=== PATIENT | female | born 1990 | race American Indian/Alaskan Native ===

== ENCOUNTER 2021-06-14 16:53 | Inpatient (IN) | payer BC, OTHER ==
[2021-06-14] MEDS ORDERED: ACETAMINOPHEN 325 MG TAB PO PRN (17:04)
[2021-06-14] MEDS ORDERED: AMPICILLIN/NS 2 GM/100 ML 2 GM/100 ML BAG IV ONE ×2 (17:04→21:00)
[2021-06-14] MEDS ORDERED: ONDANSETRON 4 MG/2 ML INJ IV PRN (17:04)
[2021-06-14] MEDS ORDERED: fentaNYL 100 MCG/2 ML INJ IV PRN (17:04)
[2021-06-14] MEDS ORDERED: ePHEDrine SULFATE 50 MG/1 ML INJ IV PRN (17:04)
[2021-06-14] MEDS ORDERED: DINOPROSTONE 10 MG VAG SUPP VG ONE (17:04)
[2021-06-14] MEDS ORDERED: OXYTOCIN 10 UNIT/1 ML INJ IM PRN (17:04)
[2021-06-14] MEDS ORDERED: MINERAL OIL 30 ML ORAL LIQD PO PRN (17:04)
[2021-06-14] MEDS ORDERED: TERBUTALINE 1 MG/1 ML INJ SUB-Q PRN (17:04)
[2021-06-14] MEDS ORDERED: NALOXONE 0.4 MG/1 ML INJ IV PRN (17:04)
[2021-06-14] MEDS ORDERED: CARBOPROST TROMETHAMINE 250 MCG/1 ML INJ IM PRN (17:04)
[2021-06-14] MEDS ORDERED: PROMETHAZINE 25 MG TAB PO PRN (17:04)
[2021-06-14] MEDS ORDERED: LIDOCAINE (2%) 20 MG/1 ML VIAL 20 ML MDV INFILTRATI ONE (17:04)
[2021-06-14] MEDS ORDERED: LOPERAMIDE 2 MG CAP PO PRN (17:04)
[2021-06-14] MEDS ORDERED: METHYLERGONOVINE MALEATE 0.2 MG/ML VIAL IM PRN (17:04)
[2021-06-14] MEDS ORDERED: miSOPROStol 200 MCG TAB PR PRN (17:04)
--- NOTE | 2021-06-14 17:11 | History and Physical Report ---
History of Present Illness Date of examination: 06/14/21 Date of admission: 06/14/2021 Chief complaint: They sent me here because my baby's heart rate was going down. History of present illness: Pt presents for post dates IOL. During post dates testing in the office, there was two audible heart rate decelerations noted. Decision made to proceed with IOL. EDC Confirmation: 06/08/2021 Gestational Age: 40.6 weeks on admission Past History : 1 Past Medical History: Reviewed and updated today: History of asthma, no recent attacks. No history of hospitalizations or intubations. Past Surgical History: Reviewed and updated today: negative Family History Summary: Reviewed history and no changes required: 05/11/2021 Risk Factors: Smoked Tobacco Use: Never smoker Smokeless Tobacco Use: Never Passive Smoke Exposure: no HIV High Risk Behavior: low risk Exercise: yes Times/wk: 3 Type of Exercise: walking Seatbelt Use: 100 % No Dietary Counseling Reason: pn yes Alcohol Use: no Drug Use: no Past Medical History Anesthesia Complications: negative Anemia: negative Autoimmune Disorder: negative Bleeding Disorder: negative Blood Transfusions: negative Breast Disease: negative Diabetes: negative Heart Disease: negative Hypertension: negative Hepatitis/Liver Disease: negative Kidney Disease/UTI: negative Neurologic/Epilepsy/Migraines: negative Phlebitis/Varicosities: negative Psychiatric: negative Pulmonary Disease/Asthma: positive Thyroid Disease: negative Hospitalizations: negative Surgery (Non-chairperson anesthesiology): negative Abnormal PAP: positive, h/o abnl pap years ago, but subsequent paps normal Infertility: negative Uterine Anomaly: negative Uterine Surgery (not C/S): negative Infection History Hx of STD: syphilis HIV Risk Eval: low risk Personal hx. of genital herpes: yes Rash, Viral, or Febrile illness since last LMP? no Infection History Comments: Syphillis this treated with Bicillin (no record of positive test); VDRL titers x3 and RPRP px2 all negative Genetic History Congenital Heart Defect: Mom: no Farzana Disease: Mom: no Thalassemia Mom: no Neural Tube Defect Mom: no Down's Syndrome Mom: no Deion-Sachs Mom: no Sickle Cell Disease/Trait Mom: no Hemophilia Mom: no Muscular Dystrophy Mom: no Cystic Fibrosis Mom: no [place] Chorea Mom: no Mental Retardation Mom: no Fragile X Mom: no Other Genetic/Chromosomal Disorder Mom: no Child w/other defect Mom: no Active Medications (reviewed today): valacyclovir unspecified(valacyclovir) Current Allergies (reviewed today): No known allergies Past History Past Medical History: asthma 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 States treated. VDRL and RPR have all been negative. ) Family/Genetic History: none Social history: no significant social history - Obstetrical History Expected Date of Delivery: 06/08/21 Actual Gestation: 41 Week(s) 0 Day(s) : 1 Para: 0 Hx # Term Pregnancies: 0 Number of Pregnancies: 0 Spontaneous Abortions: 0 Induced : 0 Number of Living Children: 0 Medications and Allergies Allergies Allergy/AdvReac Type Severity Reaction Status Date / Time No Known Allergies Allergy Verified 06/14/21 18:09 Home Medications Medication Instructions Recorded Confirmed Last Taken Type Valacyclovir HCl 500 mg PO BID 06/14/21 06/14/21 06/14/21 10:00 History 500 Review of Systems All systems: negative - Physical Exam Breasts: Positive: deferred Cardiovascular: Regular rate Lungs: Positive: Normal air movement Abdomen: Positive: normal appearance, soft Genitourinary (Female): Positive: normal external genitalia, normal perenium Vulva: both: normal (No lesions noted. ) Vagina: Positive: normal moisture Uterus: Positive: enlarged (Appropriate for 4o. wks gestation. ) Anus/Rectum: Positive: normal perianal skin (No lesions noted. ) Extremities: Positive: normal - Obstetrical FHR: category 1 Uterine Contraction Monitor Mode: External Cervical Dilatation: 1 Cervical Effacement Percentage: 60 station: -2 Uterine Contraction Pattern: Irregular Uterine Tone Measurement Phase: Resting Uterine Contraction Intensity: Mild Results Result Diagrams: 06/14/21 18:00 All other labs normal. GBS POSITIVE O POSITIVE VDRL NON REACTIVE HEP B NEGATIVE HEP C NEGATIVE HIV NEGATIVE RUBELLA IMMUNE RPR NON REACTIVE Assessment and Plan A: 31 y.o. @ 40.6 wks, IOL d/t postdates and non-reactive NST in the office. HSV+. Cervical exam /-2. - Patient Problems (1) GBS (group B Streptococcus carrier), +RV culture, currently Current Visit: Yes Status: Acute Plan to address problem: Antibiotics during admission. (2) Herpes simplex infection during Current Visit: Yes Status: Acute Qualifiers: Trimester: unspecified trimester Qualified Code(s): O98.519 - Other viral diseases complicating , unspecified trimester; B00.9 - Herpesviral infection, unspecified Plan to address problem: Valtrex ordered. Will continue to monitor for lesions during labor. (3) Postmaturity , 40-42 weeks gestation Current Visit: Yes Status: Acute Plan to address problem: Admit to labor and delivery. Initiate IV. Draw admission labs. Will insert Cervidil to start IOL. Monitor status through EFM.
[2021-06-14] MEDS ORDERED: AMPICILLIN/NS 1 GM/50 ML 1 GM/50 ML BAG IV SCH (18:00)
[2021-06-14] MEDS ORDERED: OXYTOCIN DRIP 30 UNITS/500 ML BAG IV SCH (18:00)
[2021-06-14 18:26] LABS: Hematocrit 43.6 % (30.3-42.9); Hemoglobin 14.6 gm/dl (10.1-14.3); Mean Corpuscular HGB Conc 34 % (30-34); Mean Corpuscular Volume 98 fl (79-97); Platelet Count 184 K/mm3 (140-440); Red Blood Count 4.44 M/mm3 (3.65-5.03); Red Cell Distribution Width 13.2 % (13.2-15.2)
[2021-06-14] MEDS: LACTATED RINGERS 1,000 ML IV SCH (19:35)
[2021-06-15] MEDS: AMPICILLIN/NS 1 GM/50 ML 1 GM/50 ML BAG IV SCH ×2 (01:25→09:08)
[2021-06-15] MEDS: LACTATED RINGERS 1,000 ML IV SCH (01:28)
[2021-06-15] MEDS: BUTORPHANOL 2 MG/1 ML INJ IV PRN ×2 (04:29→09:06)
--- NOTE | 2021-06-15 05:30 | Progress Note ---
Assessment and Plan - Patient Problems (1) GBS (group B Streptococcus carrier), +RV culture, currently Onset Date: ~06/15/21 Current Visit: Yes Status: Acute Plan to address problem: Will continue Ampicillin protocol in labor (2) Herpes simplex infection during Onset Date: ~06/15/21 Current Visit: Yes Status: Acute Qualifiers: Trimester: unspecified trimester Qualified Code(s): O98.519 - Other viral diseases complicating , unspecified trimester; B00.9 - Herpesviral infection, unspecified Plan to address problem: will continue valtrex 1,000mg QD for prophylaxis (3) 41 weeks gestation of Onset Date: ~06/15/21 Current Visit: Yes Status: Acute Plan to address problem: Cervidil removed per RN SVE 2.5//-2 Pt OOB for AM care and diet. Will start pitocin per protocol @ 0900 Subjective - Subjective Date of service: 06/15/21 (Pt resting Anxious @ POC) Principal diagnosis: IUP 41w0d for IOL Patient reports: movement normal, contractions Objective - Vital Signs Vital Signs: Vital Signs - 12hr 06/14/21 06/14/21 06/14/21 17:40 17:45 17:49 Temperature 98.1 F Pulse Rate 76 96 H 82 Respiratory 15 Rate Blood Pressure Blood Pressure 132/62 [Right] O2 Sat by Pulse 100 100 Oximetry 06/14/21 06/14/21 06/14/21 17:50 17:55 18:00 Temperature Pulse Rate 78 80 79 Respiratory Rate Blood Pressure Blood Pressure [Right] O2 Sat by Pulse 100 100 100 Oximetry 06/14/21 06/14/21 06/14/21 18:05 18:10 18:15 Temperature Pulse Rate 75 88 75 Respiratory Rate Blood Pressure Blood Pressure [Right] O2 Sat by Pulse 100 100 100 Oximetry 06/14/21 06/14/21 06/14/21 18:20 18:25 18:30 Temperature Pulse Rate 67 72 68 Respiratory Rate Blood Pressure Blood Pressure [Right] O2 Sat by Pulse 99 100 99 Oximetry 06/14/21 06/14/21 06/14/21 18:41 18:42 18:47 Temperature Pulse Rate 71 67 Respiratory Rate Blood Pressure Blood Pressure [Right] O2 Sat by Pulse 92 49 L 100 Oximetry 06/14/21 06/14/21 06/14/21 18:52 18:57 19:00 Temperature 98.1 F Pulse Rate 70 70 73 Respiratory 18 Rate Blood Pressure Blood Pressure 124/69 [Right] O2 Sat by Pulse 88 100 100 Oximetry 06/14/21 06/14/21 06/14/21 19:02 19:07 19:12 Temperature Pulse Rate 65 65 74 Respiratory Rate Blood Pressure Blood Pressure [Right] O2 Sat by Pulse 100 100 100 Oximetry 06/14/21 06/14/21 06/14/21 19:17 19:22 19:27 Temperature Pulse Rate 64 72 75 Respiratory Rate Blood Pressure Blood Pressure [Right] O2 Sat by Pulse 100 100 100 Oximetry 06/14/21 06/14/21 06/14/21 19:32 19:37 19:42 Temperature Pulse Rate 77 74 75 Respiratory Rate Blood Pressure 124/69 Blood Pressure [Right] O2 Sat by Pulse 100 100 100 Oximetry 06/14/21 06/14/21 06/14/21 19:47 19:52 19:57 Temperature Pulse Rate 79 75 67 Respiratory Rate Blood Pressure Blood Pressure [Right] O2 Sat by Pulse 99 100 99 Oximetry 06/14/21 06/14/21 06/14/21 20:02 20:07 20:12 Temperature Pulse Rate 88 75 70 Respiratory Rate Blood Pressure Blood Pressure [Right] O2 Sat by Pulse 100 100 100 Oximetry 06/14/21 06/14/21 06/14/21 20:17 20:22 20:27 Temperature Pulse Rate 70 68 73 Respiratory Rate Blood Pressure Blood Pressure [Right] O2 Sat by Pulse 100 100 100 Oximetry 06/14/21 06/14/21 06/14/21 20:32 20:37 20:42 Temperature Pulse Rate 72 77 81 Respiratory Rate Blood Pressure Blood Pressure [Right] O2 Sat by Pulse 100 100 100 Oximetry 06/14/21 06/14/21 06/14/21 20:47 20:52 20:57 Temperature Pulse Rate 75 74 77 Respiratory Rate Blood Pressure Blood Pressure [Right] O2 Sat by Pulse 100 100 100 Oximetry 06/14/21 06/14/21 06/14/21 21:08 21:13 21:18 Temperature Pulse Rate 76 73 82 Respiratory Rate Blood Pressure Blood Pressure [Right] O2 Sat by Pulse 97 100 100 Oximetry 06/14/21 06/14/21 06/14/21 21:23 21:28 21:33 Temperature Pulse Rate 81 82 81 Respiratory Rate Blood Pressure Blood Pressure [Right] O2 Sat by Pulse 99 100 100 Oximetry 06/14/21 06/14/21 06/14/21 21:38 21:43 21:46 Temperature Pulse Rate 77 71 70 Respiratory Rate Blood Pressure 111/71 Blood Pressure [Right] O2 Sat by Pulse 100 100 Oximetry 06/14/21 06/14/21 06/14/21 21:48 21:53 21:58 Temperature Pulse Rate 77 74 70 Respiratory Rate Blood Pressure Blood Pressure [Right] O2 Sat by Pulse 100 100 100 Oximetry 06/14/21 06/14/21 06/14/21 22:03 22:08 22:13 Temperature Pulse Rate 70 68 71 Respiratory Rate Blood Pressure Blood Pressure [Right] O2 Sat by Pulse 100 100 98 Oximetry 06/14/21 06/14/21 06/14/21 22:16 22:18 22:23 Temperature Pulse Rate 71 79 66 Respiratory Rate Blood Pressure 107/74 Blood Pressure [Right] O2 Sat by Pulse 98 99 Oximetry 06/14/21 06/14/21 06/14/21 22:28 22:33 22:42 Temperature Pulse Rate 66 65 81 Respiratory Rate Blood Pressure Blood Pressure [Right] O2 Sat by Pulse 99 99 99 Oximetry 06/14/21 06/14/21 06/14/21 22:45 22:47 22:52 Temperature Pulse Rate 80 72 82 Respiratory Rate Blood Pressure 127/82 Blood Pressure [Right] O2 Sat by Pulse 99 98 Oximetry 06/14/21 06/14/21 06/14/21 22:57 23:02 23:07 Temperature Pulse Rate 75 70 66 Respiratory Rate Blood Pressure Blood Pressure [Right] O2 Sat by Pulse 99 99 99 Oximetry 06/14/21 06/14/21 06/14/21 23:12 23:16 23:17 Temperature Pulse Rate 78 67 72 Respiratory Rate Blood Pressure 114/58 Blood Pressure [Right] O2 Sat by Pulse 99 97 Oximetry 06/14/21 06/14/21 06/14/21 23:22 23:27 23:32 Temperature Pulse Rate 71 74 69 Respiratory Rate Blood Pressure Blood Pressure [Right] O2 Sat by Pulse 97 96 98 Oximetry 06/14/21 06/14/21 06/14/21 23:37 23:42 23:47 Temperature Pulse Rate 72 73 80 Respiratory Rate Blood Pressure Blood Pressure [Right] O2 Sat by Pulse 98 99 99 Oximetry 06/14/21 06/14/21 06/15/21 23:52 23:57 00:02 Temperature Pulse Rate 77 77 71 Respiratory Rate Blood Pressure Blood Pressure [Right] O2 Sat by Pulse 99 99 98 Oximetry 06/15/21 06/15/21 06/15/21 00:07 00:12 00:15 Temperature Pulse Rate 83 71 74 Respiratory Rate Blood Pressure 106/54 Blood Pressure [Right] O2 Sat by Pulse 99 98 Oximetry 06/15/21 06/15/21 06/15/21 00:17 00:22 00:32 Temperature Pulse Rate 78 86 82 Respiratory Rate Blood Pressure Blood Pressure [Right] O2 Sat by Pulse 98 98 99 Oximetry 06/15/21 06/15/21 06/15/21 00:37 00:42 00:46 Temperature Pulse Rate 81 79 69 Respiratory Rate Blood Pressure 118/80 Blood Pressure [Right] O2 Sat by Pulse 99 100 Oximetry 06/15/21 06/15/21 06/15/21 00:47 00:52 00:57 Temperature Pulse Rate 91 H 94 H 67 Respiratory Rate Blood Pressure Blood Pressure [Right] O2 Sat by Pulse 98 99 100 Oximetry 06/15/21 06/15/21 06/15/21 01:02 01:07 01:12 Temperature Pulse Rate 81 81 81 Respiratory Rate Blood Pressure Blood Pressure [Right] O2 Sat by Pulse 98 98 99 Oximetry 06/15/21 06/15/21 06/15/21 01:15 01:17 01:22 Temperature Pulse Rate 78 82 74 Respiratory Rate Blood Pressure 108/69 Blood Pressure [Right] O2 Sat by Pulse 99 98 Oximetry 06/15/21 06/15/21 06/15/21 01:27 01:32 01:37 Temperature Pulse Rate 69 73 78 Respiratory Rate Blood Pressure Blood Pressure [Right] O2 Sat by Pulse 98 98 98 Oximetry 06/15/21 06/15/21 06/15/21 01:42 01:46 01:47 Temperature Pulse Rate 73 65 70 Respiratory Rate Blood Pressure 108/58 Blood Pressure [Right] O2 Sat by Pulse 97 97 Oximetry 06/15/21 06/15/21 06/15/21 01:52 01:57 02:02 Temperature Pulse Rate 66 62 62 Respiratory Rate Blood Pressure Blood Pressure [Right] O2 Sat by Pulse 98 98 98 Oximetry 06/15/21 06/15/21 06/15/21 02:07 02:12 02:16 Temperature Pulse Rate 60 63 61 Respiratory Rate Blood Pressure 112/66 Blood Pressure [Right] O2 Sat by Pulse 97 98 Oximetry 06/15/21 06/15/21 06/15/21 02:17 02:20 02:22 Temperature Pulse Rate 75 72 Respiratory 16 Rate Blood Pressure Blood Pressure [Right] O2 Sat by Pulse 98 100 Oximetry 06/15/21 06/15/21 06/15/21 02:27 02:32 02:37 Temperature Pulse Rate 68 61 65 Respiratory Rate Blood Pressure Blood Pressure [Right] O2 Sat by Pulse 99 98 98 Oximetry 06/15/21 06/15/21 06/15/21 02:42 02:46 02:47 Temperature Pulse Rate 60 64 62 Respiratory Rate Blood Pressure 111/68 Blood Pressure [Right] O2 Sat by Pulse 99 99 Oximetry 06/15/21 06/15/21 06/15/21 02:52 02:57 03:02 Temperature Pulse Rate 65 70 77 Respiratory Rate Blood Pressure Blood Pressure [Right] O2 Sat by Pulse 99 99 99 Oximetry 06/15/21 06/15/21 06/15/21 03:05 03:07 03:12 Temperature Pulse Rate 88 87 70 Respiratory Rate Blood Pressure Blood Pressure [Right] O2 Sat by Pulse 94 99 98 Oximetry 06/15/21 06/15/21 06/15/21 03:16 03:17 03:22 Temperature Pulse Rate 68 65 64 Respiratory Rate Blood Pressure 118/82 Blood Pressure [Right] O2 Sat by Pulse 100 100 Oximetry 06/15/21 06/15/21 06/15/21 03:27 03:32 03:37 Temperature Pulse Rate 61 64 65 Respiratory Rate Blood Pressure Blood Pressure [Right] O2 Sat by Pulse 98 99 100 Oximetry 06/15/21 06/15/21 06/15/21 03:42 03:46 03:47 Temperature Pulse Rate 68 63 65 Respiratory Rate Blood Pressure 122/78 Blood Pressure [Right] O2 Sat by Pulse 100 98 Oximetry 06/15/21 06/15/21 06/15/21 03:52 03:57 04:02 Temperature Pulse Rate 61 65 67 Respiratory Rate Blood Pressure Blood Pressure [Right] O2 Sat by Pulse 98 99 97 Oximetry 06/15/21 06/15/2106/15/21 04:07 04:12 04:15 Temperature Pulse Rate 64 65 66 Respiratory Rate Blood Pressure 121/85 Blood Pressure [Right] O2 Sat by Pulse 100 99 Oximetry 06/15/21 06/15/21 06/15/21 04:17 04:22 04:27 Temperature Pulse Rate 78 70 71 Respiratory Rate Blood Pressure Blood Pressure [Right] O2 Sat by Pulse 96 98 99 Oximetry 06/15/21 06/15/21 06/15/21 04:32 04:37 04:42 Temperature Pulse Rate 81 66 70 Respiratory Rate Blood Pressure Blood Pressure [Right] O2 Sat by Pulse 98 96 99 Oximetry 06/15/21 06/15/21 06/15/21 04:45 04:47 04:52 Temperature Pulse Rate 60 59 L 62 Respiratory Rate Blood Pressure 123/58 Blood Pressure [Right] O2 Sat by Pulse 96 99 Oximetry 06/15/21 06/15/21 06/15/21 04:57 05:02 05:07 Temperature Pulse Rate 63 63 57 L Respiratory Rate Blood Pressure Blood Pressure [Right] O2 Sat by Pulse 97 97 98 Oximetry 06/15/21 06/15/21 06/15/21 05:12 05:15 05:17 Temperature Pulse Rate 63 63 58 L Respiratory Rate Blood Pressure 110/59 Blood Pressure [Right] O2 Sat by Pulse 97 98 Oximetry 06/15/21 06/15/21 05:22 05:27 Temperature Pulse Rate 66 75 Respiratory Rate Blood Pressure Blood Pressure [Right] O2 Sat by Pulse 100 99 Oximetry - Exam Breasts: deferred Cardiovascular: Regular rate Abdomen: Present: normal appearance, soft. Absent: distention, tenderness Vulva: both: normal Uterus: Present: normal FHR: auscultation normal, category 1 Uterine Contraction Monitor Mode: External Cervical Dilatation: 2.5 (per RN when Cervidil was removed) Cervical Effacement Percentage: 70 station: -2 Uterine Contraction Pattern: Irregular Uterine Tone Measurement Phase: Resting Uterine Contraction Intensity: Moderate Extremities: normal Deep Tendon Reflex Grade: Normal +2 - Labs Labs: Abnormal Labs 06/14/21 18:00 Hgb 14.6 H Hct 43.6 H MCV 98 H MCH 33 H Laboratory Results - last 24 hr 06/14/21 06/14/21 06/14/21 17:45 18:00 18:00 WBC 8.3 RBC 4.44 Hgb 14.6 H Hct 43.6 H MCV 98 H MCH 33 H MCHC 34 RDW 13.2 Plt Count 184 Syphilis IgG Antibody Nonreactive Blood Type O POSITIVE Antibody Screen Negative
[2021-06-15] MEDS ORDERED: diphenhydrAMINE 50 MG/ML VIAL IV PRN (06:15)
[2021-06-15] MEDS ORDERED: OXYTOCIN DRIP 30 UNITS/500 ML BAG IV SCH (09:00)
[2021-06-15] MEDS: valACYclovir 500 MG TAB PO SCH (09:07)
--- NOTE | 2021-06-15 12:08 | Anesthesia Consultation ---
Anesthesia Consult and Med Hx Date of service: 06/15/21 - Airway Anesthetic Teeth Evaluation: Poor ROM Head & Neck: Adequate Mental/Hyoid Distance: Adequate Mallampati Class: Class II Intubation Access Assessment: Probably Good - Pulmonary Exam CTA: Yes - Cardiac Exam Cardiac Exam: RRR - Pre-Operative Health Status ASA Pre-Surgery Classification: ASA2 Proposed Anesthetic Plan: Epidural - Pulmonary Hx Smoking: No Hx Asthma: Yes Hx Respiratory Symptoms: No SOB: No COPD: No Home Oxygen Therapy: No Hx Pneumonia: No Hx Sleep Apnea: No - Cardiovascular System Hx Hypertension: No Hx Coronary Artery Disease: No Hx Heart Attack/AMI: No Hx Angina: No Hx Percutaneous Transluminal Coronary Angioplasty (PTCA): No Hx Cardia Arrhythmia: No Hx Pacemaker: No Hx Internal Defibrillator: No Hx Valvular Heart Disease: No Hx Heart Murmur: No Hx Peripheral Vascular Disease: No - Central Nervous System Hx Neuromuscular Disorder: No Hx Seizures: No CVA: No Hx Back Pain: Yes Hx Psychiatric Problems: No - Gastrointestinal Hx Ulcer: No Hx Gastroesophageal Reflux Disease: Yes - Endocrine Hx Renal Disease: No Hx End Stage Renal Disease: No Hx Cirrhosis: No Hx Liver Disease: No Hx Insulin Dependent Diabetes: No Hx Non-Insulin Dependent Diabetes: No Hx Thyroid Disease: No Hx Hypothyroidism: No Hx Hyperthyroidism: No - Hematic Hx Anemia: No Hx Sickle Cell Disease: No - Other Systems Hx Alcohol Use: No Hx Substance Use: No Hx Cancer: No Hx Obesity: No
[2021-06-15] MEDS ORDERED: NALOXONE 2 MG/2 ML INJ IV PRN (12:30)
[2021-06-15] MEDS ORDERED: ePHEDrine SULFATE 50 MG/1 ML INJ IV PRN (12:30)
--- NOTE | 2021-06-15 12:59 | Progress Note ---
Labor Epidural - Labor Epidural Start Time: 11:25 Stop Time: 11:35 Performed by:: ADRYAN BRAXTON Procedure: Patient is requesting a laboring epidural for laboring pain. Patient IDed, H&P reviewed, all questions and concerns were answered, and consent was signed. Timeout was performed at bedside. Patient in sitting position. Sterile prep and drape was performed. [3] ml of 1% lidocaine skin wheal at L[3]- L [4]. 18- gauge tolingotead epidural needle was advanced to loss of resistance with saline technique 6cm. Negative CSF negative blood. Epidural catheter advanced to [10] centimeters. [NEGATIVE] Aspiration [NEGATIVE] test dose. Sterile dressing applied. Patient tolerated procedure.
[2021-06-15] MEDS ORDERED: fentaNYL-BUPIV 2 MCG/ML-0.125% 200 MCG/100 ML BAG EPIDURAL SCH (13:00)
--- NOTE | 2021-06-15 13:07 | Procedure Note ---
OB Delivery Note - Delivery Date of Delivery: 06/15/21 Inverform Machine Operator: FROYLAN MARC (cord blood banking collected) Estimated blood loss: 300cc - Vaginal Delivery presentation: vertex Delivery position: OA Intrapartum events: meconium, mult.variable deceleratio Delivery induction: cervidil Delivery augmentation: pitocin Delivery monitor: external FHT, external uterine Route of delivery: Delivery placenta: spontaneous Delivery cord: 3 umbilical vessels Episiotomy: midline Delivery laceration: 2nd degree Delivery repair: vicryl Anesthesia: epidural Delivery comments: On my arrival to R amniotic bag extruding from vagina; meconium stained fluid. LATISHA present. over 2nd degree episiotomy Baby skin to skin on mom's abdomen Cord clamped and cut handed to LATISHA team. Pt req cord blood banking Blood obtained into kit pt provided. Placenta and membrane del complete and intact, 3 vessel cord. Pit IVFs. Repair of episiotomy with 2-0 vicryl in usual fashion Care of repair reviewed with pt. 8/9, EBL 300, Wgt 7-2 Mom and baby remain LDR stable. - Infant A at 1 minute: 8 at 5 minutes: 9 Gender: Male (Wgt 7-2 "Tristan")
[2021-06-15] MEDS ORDERED: LANOLIN/ZINC/DIMETHICONE (LANSINOH) 7 GM TP PRN (13:18)
[2021-06-15] MEDS ORDERED: oxyCODONE /ACETAMINOPHEN 5-325MG TAB PO PRN (13:18)
[2021-06-15] MEDS ORDERED: MAGNESIUM HYDROXIDE (MOM) ORAL LIQD UDC PO PRN (13:18)
[2021-06-15] MEDS ORDERED: WITCH HAZEL/ GLYCERIN PAD TP PRN (13:18)
[2021-06-15] MEDS ORDERED: diphenhydrAMINE 25 MG CAP PO PRN (13:18)
[2021-06-15] MEDS: IBUPROFEN 600 MG TAB PO SCH ×2 (14:25→19:46)
[2021-06-16] MEDS: IBUPROFEN 600 MG TAB PO SCH ×2 (02:00→09:50)
[2021-06-16 05:40] LABS: Hematocrit 36.8 % (30.3-42.9); Hemoglobin 12.7 gm/dl (10.1-14.3)
--- NOTE | 2021-06-16 08:06 | Discharge Summary ---
Providers - Providers Date of Admission: 06/14/21 17:11 Date of discharge: 06/16/21 (Pt desires to go home. ) Attending physician: MANJINDER ADLER Primary care physician: MANJINDER ADLER Hospitalization Reason for admission: induction of labor Delivery: Episiotomy: none Laceration: 2nd degree Other procedures: none complications: none Discharge diagnosis: IUP at term delivered [place] baby: male Hospital course: S: Pt doing well. Desires discharge home today. Ambulating, voiding, and passing flatus okay. BC: Pills. O: VSS. H?H 12.7/36.8. Fundus firm, minimal bleeding noted. A: 31 y.o. s/p . and in good condition to be discharged home. P: Discharge home with instructions. To schedule son's circumcision appointment in the office in 1 week. To schedule visit in 4 weeks. Condition at discharge: Good Disposition: 01 HOME / SELF CARE / HOMELESS Plan - Provider Discharge Summary Activity: routine, no sex for 6 weeks, no heavy lifting 4 weeks, no strenuous exercise Diet: routine Instructions: routine Additional instructions: [] Smoking cessation referral if applicable(refer to patient education folder for contact #) [] Refer to [facility] Booklet Call your doctor immediately for: * Fever > 100.5 * Heavy vaginal bleeding ( >1 pad per hour) * Severe persistent headache * Shortness of breath * Reddened, hot, painful area to leg or breast * Drainage or odor from incision. * Keep incision clean and dry at all times and follow doctor's instructions regarding bathing/showering Congratulations on your baby boy! Thank you for allowing us to take care of you. Please schedule your son's circumcision appointment in the office in 1 week. You have been prescribed EMLA cream for your son's circumcision appointment. Please do not use this cream at home but bring it with you to your son's circumcision appointment. Please schedule your visit in the office in 4 weeks. Should you have any questions or concerns after discharge, please do not hesitate to call the office at [phone]. - Follow up plan Follow up: MANJINDER ADLER MD [Primary Care Provider] - 7 Days
[2021-06-16] MEDS: valACYclovir 500 MG TAB PO SCH (09:50)
--- NOTE | 2021-06-16 10:54 | Post Anesthesia Evaluation ---
- Post Anesthesia Evaluation Patient Participated: Yes Airway Patent: Yes Stable Respiratory Function: Yes Nausea/Vomiting: No Temp > 96.8F: Yes Pain Manageable: Yes Adequeate Hydration: Yes Anesthesia Complications: No Block Receding Appropriately: Yes Patient on Ventilator: No
--- NOTE | 2021-06-16 17:08 | Event Note ---
Date: 06/16/21 (Asked by RN to come and speak to patient) I was asked to come and speak with the patient because she and her boyfriend were having a dispute in the room, and that case management may be needed. Upon entering the room, they were both calm and being attentive to the baby. I asked what was going on and if there was anything that I could do to help. They had some questions about taking the baby outside. We discussed the first weeks of the infants life at home, precautions to use when at home with baby and family members visiting. We also discussed breast feeding at home, and pumping. They admitted that they did have an argument earlier in the day, but now they are fine. They both appear to have no distress and were sitting next to each other during my visit. We discussed again bringing baby to the office in 1 week for circumcision. They both verbalized understanding. Will not put case management in at this time as I feel that it will be safe to send baby home with mother and father of baby. They both have a good support system at home and have family members that will be assisting with the baby. The father of the baby did not have a threatening stance towards me during this visit, was friendly, attentive to the mother and baby, and had appropriate questions regarding infant care.
[2021-06-16 17:14] VITALS: BP 127/66
--- NOTE | 2021-06-16 18:20 | Event Note ---
Date: 06/16/21 Went to speak with the patient without the FOC in the room. She states that she feels safe going home and will feel safe at home. The FOC does not live in [place] and will be returning to [place]. She has good support from her sisters at home and lives with her sisters.
== END 2021-06-16 18:47 | disposition home or self-care (01) | DRG 806 ==
LOC: TRG 16:53 → APU 16:54 → TRG 17:09 → LD 17:11 → OB 06-15 14:38
PROVIDERS: ADMIT Obstetrics & Gynecology; ATTEND Obstetrics & Gynecology
PROC: 10E0XZZ Delivery of Products of Conception, External Approach (ICD-10-PCS; principal; 2021-06-15)
PROC: 0KQM0ZZ Repair Perineum Muscle, Open Approach (ICD-10-PCS; 2021-06-15)
PROC: 3E0R3BZ Introduction of Anesthetic Agent into Spinal Canal, Percutaneous Approach (ICD-10-PCS; 2021-06-15)
PROC: 00HU33Z Insertion of Infusion Device into Spinal Canal, Percutaneous Approach (ICD-10-PCS; 2021-06-15)
PROC: 3E0P7VZ Introduction of Hormone into Female Reproductive, Via Natural or Artificial Opening (ICD-10-PCS; 2021-06-15)
PROC: 0W8NXZZ Division of Female Perineum, External Approach (ICD-10-PCS; 2021-06-15)
DX: O48.0 Post-term pregnancy (principal); O98.52 Other viral diseases complicating childbirth; Z37.0 Single live birth; O99.820 Streptococcus B carrier state complicating pregnancy; O76 Abnormality in fetal heart rate and rhythm complicating labor and delivery; Z3A.41 41 weeks gestation of pregnancy; B00.9 Herpesviral infection, unspecified; O70.1 Second degree perineal laceration during delivery; O99.52 Diseases of the respiratory system complicating childbirth; O99.62 Diseases of the digestive system complicating childbirth; K21.9 Gastro-esophageal reflux disease without esophagitis; J45.909 Unspecified asthma, uncomplicated; O77.0 Labor and delivery complicated by meconium in amniotic fluid; Z20.822 Contact with and (suspected) exposure to COVID-19
CPT/HCPCS: 36415; 59200; 85014; 85018; 85027; 86592; 86850; 86900; 86901; 99211; G0378; G0463; J0290; J0595; J2590; J3010; J7120; U0003

== ENCOUNTER 2021-06-25 18:22 | Inpatient (IN) | payer BC, OTHER ==
[2021-06-25] MEDS ORDERED: metroNIDAZOLE/NS 500 MG/100 ML 500 MG/100 ML BAG IV ONE (18:54)
[2021-06-25] MEDS ORDERED: CEFEPIME/NS 2 GM/100 ML 2 GM/100 ML BAG IV ONE (18:54)
--- NOTE | 2021-06-25 18:54 | Emergency Department Report ---
ED Female HPI - General Chief complaint: Vaginal Bleeding Stated complaint: POST OP COMPLICATIONS Time Seen by Provider: 06/25/21 18:44 Source: patient Mode of arrival: Ambulatory Limitations: No Limitations - History of Present Illness Initial comments: Patient presents with lower abdominal pain. 1 week ago, she had a vaginal delivery. She states that she did undergo an episiotomy as her child was large. She had her usual symptomatology after delivery up until yesterday. Yesterday, she started having sharp stabbing abdominal pain. This was unusual for her. She called the office and was told to take 800 mg of ibuprofen. She did this. She is also started running fevers and chills today. Patient states he just does not feel well. She decided to come here for evaluation. She does report that she has had increased discharge with a foul odor. She states it "smells rotten." She has had no dysuria. There is no cough or congestion. There is no sore throat. She has no chest pain. - Related Data Home Medications Medication Instructions Recorded Confirmed Last Taken Valacyclovir HCl 500 mg PO BID 06/14/21 06/14/21 06/14/21 10:00 500 Previous Rx's Medication Instructions Recorded Last Taken Type Ibuprofen [Motrin] 800 mg PO Q8HR PRN #30 tablet 06/16/21 Unknown Rx Lidocain2.5%/Prilocai2.5% [Emla] 1 applic TP ONCE #1 tube 06/16/21 Unknown Rx Allergies Allergy/AdvReac Type Severity Reaction Status Date / Time No Known Allergies Allergy Verified 06/14/21 18:09 ED Review of Systems ROS: Stated complaint: POST OP COMPLICATIONS Other details as noted in HPI Comment: All other systems reviewed and negative Constitutional: see HPI Eyes: denies: eye pain, vision change ENT: denies: throat pain Respiratory: denies: cough Cardiovascular: denies: chest pain Endocrine: denies: unexplained weight loss Gastrointestinal: as per HPI Genitourinary: denies: dysuria Musculoskeletal: denies: back pain Skin: denies: rash Neurological: headache (She developed a migraine today.) Hematological/Lymphatic: denies: easy bruising ED Past Medical Hx - Past Medical History Previous Medical History?: Yes Hx Hypertension: No Hx Heart Attack/AMI: No Hx Congestive Heart Failure: No Hx Diabetes: No Hx Deep Vein Thrombosis: No Hx Liver Disease: No Hx Renal Disease: No Hx Sickle Cell Disease: No Hx Seizures: No Hx Asthma: Yes Hx COPD: No Hx HIV: No - Surgical History Past Surgical History?: Yes Hx Pacemaker: No Hx Internal Defibrillator: No - Family History Family history: no significant - Social History Smoking Status: Never Smoker - Medications Home Medications: Home Medications Medication Instructions Recorded Confirmed Last Taken Type Valacyclovir HCl 500 mg PO BID 06/14/21 06/14/21 06/14/21 10:00 History 500 Ibuprofen [Motrin] 800 mg PO Q8HR PRN #30 tablet 06/16/21 Unknown Rx Lidocain2.5%/Prilocai2.5% [Emla] 1 applic TP ONCE #1 tube 06/16/21 Unknown Rx ED Physical Exam - General Limitations: No Limitations, Other (Pulse ox is noted and normal. She is not hypoxic.) General appearance: alert, in distress (Mild) - Head Head exam: Present: atraumatic, normocephalic, normal inspection - Eye Eye exam: Present: normal appearance, EOMI. Absent: scleral icterus - ENT ENT exam: Present: mucous membranes dry, normal external ear exam - Neck Neck exam: Present: normal inspection. Absent: meningismus - Respiratory Respiratory exam: Present: normal lung sounds bilaterally. Absent: respiratory distress - Cardiovascular Cardiovascular Exam: Present: tachycardia (No murmur) - GI/Abdominal GI/Abdominal exam: Present: soft, tenderness (Diffuse lower abdominal and pelvic tenderness). Absent: guarding, rebound - External exam: Present: other (Episiotomy appears to be intact. Stitches are in place. There is local tenderness.) Speculum exam: Present: cervical discharge (Brown) - Extremities Exam Extremities exam: Present: normal capillary refill. Absent: pedal edema - Back Exam Back exam: Absent: CVA tenderness (R), CVA tenderness (L) - Neurological Exam Neurological exam: Present: alert, oriented X3, CN II-XII intact. Absent: motor sensory deficit - Psychiatric Psychiatric exam: Present: normal affect, normal mood - Skin Skin exam: Present: warm, dry ED Course Vital Signs 06/25/21 06/25/21 06/25/21 18:32 18:52 18:53 Temperature 102.7 F H Pulse Rate 110 H 118 H Respiratory 16 16 Rate Blood Pressure Blood Pressure 124/70 114/65 [Left] O2 Sat by Pulse 96 99 99 Oximetry 06/25/21 06/25/21 06/25/21 19:30 20:00 20:56 Temperature Pulse Rate Respiratory Rate Blood Pressure 114/65 109/61 115/43 Blood Pressure [Left] O2 Sat by Pulse 99 96 97 Oximetry 06/25/21 06/25/21 06/25/21 21:00 21:01 21:30 Temperature 99 F Pulse Rate Respiratory Rate Blood Pressure 115/43 115/43 108/53 Blood Pressure [Left] O2 Sat by Pulse 95 96 95 Oximetry - Reevaluation(s) Reevaluation #1: 06/25/21 18:54 IV and labs were ordered. Reevaluation #2: 06/25/21 22:26 Labs of been noted. 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 Case was discussed with the midwives, who in turn discussed the case with Dr. Meade. They prefer admission. Patient has been informed. ED Medical Decision Making - Lab Data Result diagrams: 06/25/21 19:15 06/25/21 19:15 - Medical Decision Making 2225- Patient presented with lower abdominal pain in the setting of fever and tachycardia. She clinically has endometritis. There is no evidence of retained products. She does not clinically have an abscess. There is no evidence of lactic acidosis or organ dysfunction. She does not have severe sepsis or septic shock. Patient has been given antibiotics. She is been given fluids. She will be admitted for ongoing management and treatment. Further IV hydration has been ordered. However based on the fact that she does not have severe sepsis or septic shock, a 30 mL/kg bolus was not ordered. Critical care attestation.: If time is entered above; I have spent that time in minutes in the direct care of this critically ill patient, excluding procedure time. ED Disposition Clinical Impression: Endometritis Sepsis Qualifiers: Sepsis type: sepsis due to unspecified organism Sepsis acute organ dysfunction status: without acute organ dysfunction Qualified Code(s): A41.9 - Sepsis, unspecified organism Disposition: 09 ADMITTED INPATIENT Is pt being admited?: Yes Condition: Stable
[2021-06-25] MEDS ORDERED: SODIUM CHLORIDE 0.9% 1000 ML 1,000 ML IV ONE ×2 (18:58→22:41)
[2021-06-25] MEDS ORDERED: fentaNYL 100 MCG/2 ML INJ IV ONE (18:58)
[2021-06-25] MEDS ORDERED: ACETAMINOPHEN 500 MG TAB PO ONE (18:59)
[2021-06-25 19:42] LABS: Basophils % (Auto) 0.2 % (0.0-1.8); Eosinophils # (Auto) 0.1 K/mm3 (0.0-0.4); Eosinophils % (Auto) 0.5 % (0.0-4.3); Hematocrit 45.6 % (30.3-42.9); Hemoglobin 15.5 gm/dl (10.1-14.3); Lymphocytes # (Auto) 0.9 K/mm3 (1.2-5.4); Lymphocytes % (Auto) 8.1 % (13.4-35.0); Mean Corpuscular HGB Conc 34 % (30-34); Mean Corpuscular Volume 99 fl (79-97); Monocytes # (Auto) 0.4 K/mm3 (0.0-0.8); Monocytes % (Auto) 3.5 % (0.0-7.3); Platelet Count 224 K/mm3 (140-440); Red Blood Count 4.62 M/mm3 (3.65-5.03); Red Cell Distribution Width 12.7 % (13.2-15.2)
[2021-06-25 20:01] LABS: Alanine Aminotransferase 32 units/L (7-56); Albumin 4.2 g/dL (3.9-5); Blood Urea Nitrogen 11 mg/dL (7-17); Calcium 9.3 mg/dL (8.4-10.2); Hemolysis Index 41
[2021-06-25 20:02] LABS: BUN/Creatinine Ratio 16
--- NOTE | 2021-06-25 21:01 | Ultrasound Report ---
ULTRASOUND PELVIS INDICATION / CLINICAL INFORMATION: Endometritis, possible retained POC. TECHNIQUE: Transabdominal. Duplex Color Doppler used: Yes. COMPARISON: None available FINDINGS: UTERUS: - Appearance: No significant abnormality. - Size (cm): 13.4 x 6.1 x 9.9 - Endometrial Complex (if present): There is a small amount of fluid seen within the endometrium but no solid vascular echogenic material to suggest retained products. Thickness in cm (if measured) = no t measured - Mass or cyst: None. - Additional findings: None. RIGHT ADNEXA: No significant ovarian cyst or mass. Normal color Doppler blood flow. LEFT ADNEXA: Left ovary is not seen. No left adnexal lesion. URINARY BLADDER: No significant abnormality. FREE FLUID: None. ADDITIONAL FINDINGS: None. IMPRESSION: 1. Small amount of fluid within the endometrial canal; however, there is no solid vascular echogenic material to suggest retained products of conception. Signer Name: Bpiin Roldan DO Signed: 06/25/2021 8:57 PM Workstation Name: [id number]
[2021-06-26] MEDS ORDERED: LANOLIN/ZINC/DIMETHICONE (LANSINOH) 7 GM TP PRN ×2 (00:23)
[2021-06-26] MEDS ORDERED: oxyCODONE /ACETAMINOPHEN 5-325MG TAB PO PRN (00:23)
[2021-06-26] MEDS ORDERED: BENZOCAINE/MENTHOL 20/0.5% TOP SPRAY 56 GM TP PRN (00:23)
[2021-06-26] MEDS ORDERED: PROMETHAZINE 25 MG TAB PO PRN (00:23)
[2021-06-26] MEDS ORDERED: WITCH HAZEL/ GLYCERIN PAD TP PRN (00:23)
[2021-06-26] MEDS ORDERED: diphenhydrAMINE 25 MG CAP PO PRN (00:23)
[2021-06-26] MEDS ORDERED: PROMETHAZINE 25 MG RECT SUPP PR PRN (00:23)
[2021-06-26] MEDS ORDERED: MAGNESIUM HYDROXIDE (MOM) ORAL LIQD UDC PO PRN (00:23)
[2021-06-26] MEDS ORDERED: ONDANSETRON 4 MG/2 ML INJ IV PRN (00:23)
[2021-06-26] MEDS ORDERED: ACETAMINOPHEN 500 MG TAB PO PRN (00:23)
--- NOTE | 2021-06-26 00:39 | History and Physical Report ---
History of Present Illness Date of examination: 06/26/21 Date of admission: 06/25/21 22:28 Chief complaint: I had a temperature. I was under a lot of blankets and was still cold. We I went to change my pad, I had some drainage down there that was not blood, and it smelled foul. History of present illness: Pt is a 31 y.o. that is s/p 11 days. She presented to the ER d/t foul smelling lochia and lower abdominal pain. State that the lower abdominal pain started at 0200am on 06/25/21. When the pain became worse, she stated that she know something was wrong and presented to the ER. In the ER her max temp was noted to be 102.7 and her HR was in the low 110's-120's. Consulted with Dr. Fox and decision made to admit for antibiotic administration. Past History: Past Medical History: Reviewed and updated today: History of asthma, no recent attacks. No history of hospitalizations or intubations. Past Surgical History: Reviewed and updated today: negative Family History Summary: Reviewed history and no changes required: 05/11/2021 Risk Factors: Smoked Tobacco Use: Never smoker Smokeless Tobacco Use: Never Passive Smoke Exposure: no HIV High Risk Behavior: low risk Exercise: yes Times/wk: 3 Type of Exercise: walking Seatbelt Use: 100 % No Dietary Counseling Reason: pn yes Alcohol Use: no Drug Use: no Past Medical History Anesthesia Complications: negative Anemia: negative Autoimmune Disorder: negative Bleeding Disorder: negative Blood Transfusions: negative Breast Disease: negative Diabetes: negative Heart Disease: negative Hypertension: negative Hepatitis/Liver Disease: negative Kidney Disease/UTI: negative Neurologic/Epilepsy/Migraines: negative Phlebitis/Varicosities: negative Psychiatric: negative Pulmonary Disease/Asthma: positive Thyroid Disease: negative Hospitalizations: negative 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 of genital herpes: yes Rash, Viral, or Febrile illness since last LMP? no Infection History Comments: Syphillis this treated with Bicillin (no record of positive test); VDRL titers x3 and RPRP px2 all negative Genetic History Congenital Heart Defect: Mom: no Farzana Disease: Mom: no Thalassemia Mom: no Neural Tube Defect Mom: no Down's Syndrome Mom: no Deion-Sachs Mom: no Sickle Cell Disease/Trait Mom: no Hemophilia Mom: no Muscular Dystrophy Mom: no Cystic Fibrosis Mom: no [place] Chorea Mom: no Mental Retardation Mom: no Fragile X Mom: no Other Genetic/Chromosomal Disorder Mom: no Child w/other defect Mom: no Current Allergies (reviewed today): No known allergies Past History Past Medical History: no pertinent history 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 Social history: no significant social history - Obstetrical History : 1 Para: 1 Hx # Term Pregnancies: 1 Number of Pregnancies: 0 Spontaneous Abortions: 0 Induced : 0 Number of Living Children: 1 Medications and Allergies Allergies Allergy/AdvReac Type Severity Reaction Status Date / Time No Known Allergies Allergy Verified 06/14/21 18:09 Home Medications Medication Instructions Recorded Confirmed Last Taken Type Valacyclovir HCl 500 mg PO BID 06/14/21 06/26/21 06/25/21 09:00 History Ibuprofen [Motrin] 800 mg PO Q8HR PRN #30 tablet 06/16/21 06/26/21 06/25/21 12:00 Rx Lidocain2.5%/Prilocai2.5% [Emla] 1 applic TP ONCE #1 tube 06/16/21 06/26/21 Unknown Rx Active Meds: Active Medications Acetaminophen (Acetaminophen 325 Mg Tab) 1,000 mg PO Q6H PRN PRN Reason: Pain MILD(1-3)/Fever >100.5/MOTLEY Benzocaine/Menthol (Benzocaine/Menthol 20/0.5% Top [place] 56 Gm) 1 spray TP PRN PRN PRN Reason: Episiotomy Pain Bisacodyl (Bisacodyl 10 Mg Rect Supp) 10 mg VA BID PRN PRN Reason: Constipation Diphenhydramine HCl (Diphenhydramine 25 Mg Cap) 25 mg PO Q6H PRN PRN Reason: Itching Docusate Sodium (Docusate Sodium 100 Mg Cap) 100 mg PO BID KEYA Cefepime HCl (Cefepime/Ns 2 Gm/100 Ml) 2 gm in 100 mls @ 200 mls/hr IV Q8H KEYA; Protocol Metronidazole (Flagyl 500 Mg/100 Ml) 500 mg in 100 mls @ 100 mls/hr IV Q8H KEYA; Protocol Ibuprofen (Ibuprofen 600 Mg Tab) 800 mg PO Q6H KEYA Magnesium Hydroxide (Magnesium Hydroxide (Mom) Oral Liqd Udc) 30 ml PO HS PRN PRN Reason: Constipation Multi-Ingredient Ointment (Lanolin/Zinc/Dimethicone (Lansinoh) 7 Gm) 1 applic TP PRN PRN PRN Reason: Sore Nipples Multi-Ingredient Ointment (Lanolin/Zinc/Dimethicone (Lansinoh) 7 Gm) 1 applic TP PRN PRN PRN Reason: dryness/cracking Multivitamins/Iron/Calcium ( Lix80-Zd Fumarate-Folic Acid Vit Tab) 1 each PO QDAY KEYA Ondansetron HCl (Ondansetron 4 Mg/2 Ml Inj) 4 mg IV Q8H PRN PRN Reason: Nausea And Vomiting Oxycodone/Acetaminophen (Oxycodone /Acetaminophen 5-325mg Tab) 1 tab PO Q6H PRN PRN Reason: Pain, Moderate (4-6) Promethazine HCl (Promethazine 25 Mg Rect Supp) 25 mg VA Q6H PRN PRN Reason: Nausea And Vomiting Promethazine HCl (Promethazine 25 Mg Tab) 25 mg PO Q6H PRN PRN Reason: Nausea And Vomiting Sodium Chloride (Sodium Chloride 0.9% 10 Ml Flush Syringe) 10 ml IV PRN NR Witch Kerri/Glycerin (Witch Kerri/ Glycerin Pad) 1 each TP PRN PRN PRN Reason: Hemorrhoid/cleansing/soothing Review of Systems All systems: negative Constitutional: fever, chills, sweats Gastrointestinal: abdominal pain (Lower, mostly on the left side. ) - Vital Signs Vital signs: Vital Signs Temp Pulse Resp BP Pulse Ox 102.7 F H 110 H 16 124/70 96 06/25/21 18:32 06/25/21 18:32 06/25/21 18:32 06/25/21 18:32 06/25/21 18:32 Temp Pulse Resp BP Pulse Ox 99 F 118 H 16 115/64 99 06/25/21 21:01 06/25/21 18:52 06/25/21 18:52 06/26/21 00:14 06/26/21 00:14 - Physical Exam Breasts: Positive: normal, , tender, other (Soft, no redness noted. ) Cardiovascular: Normal S1, Normal S2 Lungs: Positive: Clear to auscultation Abdomen: Positive: normal appearance, soft, normal bowel sounds, other (Lower abdominal pain on left side upon palpation. ) Genitourinary (Female): Positive: normal external genitalia, normal perenium, other (Laceration healing well. No s/sx of infection noted. ) Vulva: both: normal Vagina: Positive: normal moisture, other (Small amount of lochia noted on pad. Odor noted. ) Uterus: Positive: normal size Extremities: Positive: normal Results Result Diagrams: 06/25/21 19:15 06/25/21 19:15 Abnormal lab results 06/25/21 06/25/21 06/25/21 Range/Units 19:15 19:15 23:41 WBC 11.7 H (4.5-11.0) K/mm3 Hgb 15.5 H (10.1-14.3) gm/dl Hct 45.6 H (30.3-42.9) % MCV 99 H (79-97) fl MCH 34 H (28-32) pg RDW 12.7 L (13.2-15.2) % Lymph % (Auto) 8.1 L (13.4-35.0) % Lymph # (Auto) 0.9 L (1.2-5.4) K/mm3 Seg Neutrophils % 87.7 H (40.0-70.0) % Seg Neutrophils # 10.2 H (1.8-7.7) K/mm3 Carbon Dioxide 17 L (22-30) mmol/L Lactic Acid 0.60 L (0.7-2.0) mmol/L Alkaline Phosphatase 145 H (35-129) units/L All other labs normal. Explained to patient the reason for admission. Pt has to remain afebrile for 24 hours to be discharged home. Also we discussed that she will be getting IV antibiotics and that we will be watching her vital signs closely. Pt verbalized understanding. At this moment her vital signs are stable. She had a max temp of 102.7. Assessment and Plan A: 31 y.o. s/p 12 days ago. Fever, chills, fouls smelling lochia. - Patient Problems (1) Endometritis Onset Date: ~06/25/21 Current Visit: Yes Status: Acute Plan to address problem: Admit to mother/baby unit. Initiate IV. Antibiotics as ordered. Continue to monitor vital signs closely. (2) Sepsis Onset Date: ~06/25/21 Current Visit: Yes Status: Acute Qualifiers: Sepsis type: sepsis due to unspecified organism Sepsis acute organ dysfunction status: without acute organ dysfunction Qualified Code(s): A41.9 - Sepsis, unspecified organism Plan to address problem: Antibiotics ordered. Blood cultures pending.
[2021-06-26] MEDS ORDERED: SODIUM CHLORIDE 0.9% 500 ML 500 ML IV SCH (04:00)
[2021-06-26] MEDS: SODIUM CHLORIDE IV SCH ×3 (04:21→22:00)
[2021-06-26] MEDS: CEFEPIME IV SCH ×3 (04:21→22:00)
[2021-06-26] MEDS: IBUPROFEN 800 MG TAB PO SCH ×3 (04:23→10:39)
[2021-06-26] MEDS: metroNIDAZOLE/NS 500 MG/100 ML 500 MG/100 ML BAG IV SCH ×4 (05:46→22:55)
--- NOTE | 2021-06-26 08:54 | Progress Note ---
Assessment and Plan VSSAF; Pt sitting in bed without complaints. POC reviewed with pt. Questions encouraged and answered. Pt verbalizes understanding and agrees to POC. - Patient Problems (1) Endometritis Onset Date: ~06/25/21 Current Visit: Yes Status: Acute Plan to address problem: monitor pt closely and notify provider with any changes in status blood cultures pending IV antibiotics as ordered Subjective - Subjective Date of service: 06/26/21 Principal diagnosis: endometritis Patient reports: appetite normal, voiding normally, pain well controlled, ambulating normally Objective - Vital Signs Latest vital signs: Vital Signs Temp Pulse Resp BP BP Pulse Ox Pulse Ox 06/26/21 04:23 98.9 F 85 20 111/61 100 06/26/21 00:30 99.2 F 79 18 71/39 109/60 98 100 06/26/21 00:20 115/64 98 06/26/21 00:14 115/64 99 06/26/21 00:12 115/64 97 06/25/21 23:30 115/64 96 06/25/21 23:00 123/67 100 06/25/21 22:30 108/53 100 06/25/21 21:30 108/53 95 06/25/21 21:01 99 F 115/43 96 06/25/21 21:00 115/43 95 06/25/21 20:56 115/43 97 06/25/21 20:00 109/61 96 06/25/21 19:30 114/65 99 06/25/21 18:53 99 06/25/21 18:52 118 H 16 114/65 99 06/25/21 18:32 102.7 F H 110 H 16 124/70 96 Intake and Output 06/25/21 06/26/21 06/26/21 23:59 07:59 15:59 Intake Total 240 Output Total 200 Balance 40 Intake: Oral 240 Output: Urine 200 Void 200 Other: Total, Intake Amount 240 Total, Output Amount 200 Weight 145 lb 51 lb 9.411 oz Patient Weight 06/26/21 23:59 Weight 51 lb 9.411 oz - Exam Breasts: Present: deferred Cardiovascular: Present: Regular rate Lungs: Present: Normal air movement Abdomen: Present: normal appearance, soft. Absent: distention, tenderness, guarding Vulva: both: normal Uterus: Present: normal, firm, fundal height below umbilicus Extremities: Present: normal - Labs Labs: Abnormal lab results 06/25/21 06/25/21 06/25/21 Range/Units 19:15 19:15 23:41 WBC 11.7 H (4.5-11.0) K/mm3 Hgb 15.5 H (10.1-14.3) gm/dl Hct 45.6 H (30.3-42.9) % MCV 99 H (79-97) fl MCH 34 H (28-32) pg RDW 12.7 L (13.2-15.2) % Lymph % (Auto) 8.1 L (13.4-35.0) % Lymph # (Auto) 0.9 L (1.2-5.4) K/mm3 Seg Neutrophils % 87.7 H (40.0-70.0) % Seg Neutrophils # 10.2 H (1.8-7.7) K/mm3 Carbon Dioxide 17 L (22-30) mmol/L Lactic Acid 0.60 L (0.7-2.0) mmol/L Alkaline Phosphatase 145 H (35-129) units/L
[2021-06-26] MEDS: valACYclovir 500 MG TAB PO SCH (10:40)
[2021-06-26] MEDS: PRENATAL VIT27-FE FUMARATE-FOLIC ACID VIT TAB PO SCH (10:40)
[2021-06-26] MEDS: DOCUSATE SODIUM 100 MG CAP PO SCH ×2 (10:40→22:56)
[2021-06-27] MEDS: SODIUM CHLORIDE IV SCH ×3 (05:35→21:56)
[2021-06-27] MEDS: CEFEPIME IV SCH ×3 (05:35→21:56)
[2021-06-27] MEDS: IBUPROFEN 800 MG TAB PO SCH ×2 (06:00→07:03)
[2021-06-27] MEDS: metroNIDAZOLE/NS 500 MG/100 ML 500 MG/100 ML BAG IV SCH ×3 (07:09→22:33)
--- NOTE | 2021-06-27 07:47 | Progress Note ---
Assessment and Plan VSSAF; Pt sitting in bed. Pt teary and expresses desire to see , appropriate to situation. 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 POC reviewed with pt. Questions encouraged and answered. Pt verbalizes understanding and agrees to POC. Anticipate stable dc tmrw - Patient Problems (1) Endometritis Onset Date: ~06/25/21 Current Visit: Yes Status: Acute Plan to address problem: monitor pt closely and notify provider with any changes in status blood cultures pending, no growth on preliminary result IV antibiotics x48hrs Subjective - Subjective Date of service: 06/27/21 Principal diagnosis: endometritis Patient reports: appetite normal, voiding normally, pain well controlled, ambulating normally Objective - Vital Signs Latest vital signs: Vital Signs Temp Pulse Resp BP Pulse Ox Pulse Ox 06/27/21 04:26 98.2 F 90 20 103/60 98 06/27/21 00:23 98.2 F 63 18 116/60 100 06/26/21 20:42 98.2 F 82 20 111/71 98 06/26/21 19:30 98 06/26/21 16:56 98.2 F 68 18 107/58 100 06/26/21 12:55 98.0 F 63 18 110/59 100 06/26/21 10:39 20 06/26/21 08:01 98.5 F 85 18 103/58 98 06/26/21 08:00 98 Intake and Output 06/26/21 06/26/21 06/27/21 15:59 23:59 07:59 Intake Total 920 1040 540 Output Total 1300 1600 1000 Balance -380 -560 -460 Intake: IV 200 200 Cefepime 2 gm In NACL 0.9 100 100 % 2 gm In 100 ml @ 200 mls/hr IV Q8H KEYA Rx#: [id number] FLAGYL 500 MG/100 ML 500 100 100 mg In 100 ml @ 100 mls/hr IV Q8HR KEYA Rx#: [id number] Oral 360 480 540 Intake, Free Water 360 360 Output: Urine 1300 1600 1000 Void 1300 1600 1000 Other: Total, Intake Amount 240 240 300 Total, Output Amount 500 900 600 Weight 145 lb 0.004 oz - Exam Breasts: Present: normal, Cardiovascular: Present: Regular rate Lungs: Present: Normal air movement Abdomen: Present: normal appearance, soft Vulva: both: normal Uterus: Present: normal, firm Extremities: Present: normal
[2021-06-27] MEDS: PRENATAL VIT27-FE FUMARATE-FOLIC ACID VIT TAB PO SCH (10:39)
[2021-06-27] MEDS: DOCUSATE SODIUM 100 MG CAP PO SCH ×2 (10:39→21:52)
[2021-06-27] MEDS: valACYclovir 500 MG TAB PO SCH (10:40)
[2021-06-27 10:41] LABS: Hematocrit 39.4 % (30.3-42.9); Hemoglobin 13.9 gm/dl (10.1-14.3); Mean Corpuscular HGB Conc 35 % (30-34); Mean Corpuscular Volume 97 fl (79-97); Platelet Count 194 K/mm3 (140-440); Red Blood Count 4.06 M/mm3 (3.65-5.03); Red Cell Distribution Width 12.7 % (13.2-15.2)
[2021-06-28] MEDS: IBUPROFEN 800 MG TAB PO SCH ×2 (03:29→07:21)
[2021-06-28] MEDS: CEFEPIME IV SCH (05:54)
[2021-06-28] MEDS: SODIUM CHLORIDE IV SCH (05:54)
[2021-06-28] MEDS: metroNIDAZOLE/NS 500 MG/100 ML 500 MG/100 ML BAG IV SCH (06:25)
[2021-06-28 08:56] VITALS: BP 110/52
--- NOTE | 2021-06-28 09:37 | Discharge Summary ---
Providers - Providers Date of Admission: 06/26/21 00:23 Date of discharge: 06/28/21 Attending physician: SARMAD VELÁZQUEZ Primary care physician: MANJINDER ADLER Hospitalization Reason for admission: endometritis Condition: Good Pertinent studies: BC x 2 neg, UC neg Procedures: IV abx Hospital course: admitted for management of endometritis Disposition: 01 HOME / SELF CARE / HOMELESS Final Discharge Diagnosis (Prints w/discharge instructions): Endometritis Time spent for discharge: 20 - Discharge Diagnoses (1) Endometritis Status: Acute Core Measure Documentation - Palliative Care Palliative Care/ Comfort Measures: Not Applicable - Core Measures Any of the following diagnoses?: none Exam - Constitutional Vitals: Temp Pulse Resp BP Pulse Ox 98.1 F 62 20 110/52 97 06/28/21 08:36 06/28/21 08:36 06/28/21 08:36 06/28/21 08:36 06/28/21 08:36 General appearance: Present: no acute distress, well-nourished - EENT ENT: hearing intact, clear oral mucosa - Neck Neck: Present: supple, normal ROM - Respiratory Respiratory effort: normal Respiratory: bilateral: CTA - Cardiovascular Rhythm: regular Heart Sounds: Absent: rub, click - Extremities Extremities: No edema Peripheral Pulses: within normal limits - Abdominal General gastrointestinal: Present: soft, non-tender, non-distended, normal bowel sounds Female genitourinary: Present: normal - Integumentary Integumentary: Present: clear, warm, dry - Musculoskeletal Musculoskeletal: gait normal, strength equal bilaterally - Psychiatric Psychiatric: appropriate mood/affect, intact judgment & insight - Neurologic Neurologic: CNII-XII intact, moves all extremities Plan Activity: no restrictions Diet: regular Follow up with: MANJINDER ADLER MD [Primary Care Provider] - 7 Days (Please call [phone] to schedule a follow up visit in 1 week. We will call you with your antibiotic prescription today.)
[2021-06-28] MEDS: DOCUSATE SODIUM 100 MG CAP PO SCH (10:16)
[2021-06-28] MEDS: PRENATAL VIT27-FE FUMARATE-FOLIC ACID VIT TAB PO SCH (10:17)
[2021-06-28] MEDS: valACYclovir 500 MG TAB PO SCH (10:17)
== END 2021-06-28 11:15 | disposition home or self-care (01) | DRG 776 ==
LOC: ED 18:22 → OB 22:28 → OBSVTOIN 06-26 00:23
PROVIDERS: ADMIT Obstetrics & Gynecology; ATTEND Obstetrics & Gynecology
DX: O85 Puerperal sepsis (principal); Z20.822 Contact with and (suspected) exposure to COVID-19
CPT/HCPCS: 36415; 76856; 80053; 82140; 85025; 85027; 86850; 86900; 86901; 87040; 87086; 87591; G0378; J0692; J3010; J7030; J7040; U0003